=== PATIENT | female | born 1940 | race African-American/Black ===

== ENCOUNTER → 2018-11-01 | Outpatient (CLI) | payer OTHER ==
--- NOTE | 2018-11-01 17:02 | KCIC ---
EXAM: PA and Lateral Views of the Chest DATE: 11/01/2018 12:00 AM INDICATION: Chest pain COMPARISON: No Prior FINDINGS: The heart is not enlarged. Tortuous appearance of the aorta. No focal parenchymal airspace opacity. No pleural effusion or pneumothorax. IMPRESSION: 1. No radiographic evidence for acute cardiopulmonary process. Electronically signed by: Vasquez Banks MD (11/01/2018 4:59 PM) [facility]
== END | disposition home or self-care (01) ==
LOC: KCIC 11:40
PROVIDERS: ATTEND Family Medicine
DX: R07.9 Chest pain, unspecified (principal)
CPT/HCPCS: 71046